=== PATIENT | male | born 1970 | race Caucasian/White ===

== ENCOUNTER 2018-10-21 11:01 | Emergency (ER) | payer OTHER ==
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
[2018-10-21 11:46] VITALS: BP 147/94; TEMP 97; O2SAT 97
== END 2018-10-21 11:40 | disposition home or self-care (01) ==
LOC: ER 11:01
DX: Z71.1 Person with feared health complaint in whom no diagnosis is made (principal); V49.49XA Driver injured in collision with other motor vehicles in traffic accident, initial encounter
CPT/HCPCS: 99284